=== PATIENT | male | born 1945 | race Caucasian/White ===

== ENCOUNTER 2016-12-23 14:14 | Inpatient (IN) | payer OTHER, MEDICARE ==
[2016-12-23] VITALS (11 sets, daily range): BP systolic 107–132; BP diastolic 71–87; PULSE 80–104; RESP 18–24; TEMP 97.9–98.6; O2SAT 89–98
[~2016-12-23] VITALS: Ht 185.4 cm; Wt 96.4 kg
[~2016-12-23 14:14] MED LIST: ADVA250A INH; ALBU17I INH; ALBU6.7H INH; ATOR10 PO; LISI-360 PO; PANT20 PO; PRED20 PO; SLO-500T2 PO; SPIRCAP INH; ZITH250T PO
[2016-12-23] MEDS ORDERED: VENTAER INH (14:42)
[2016-12-23] MEDS ORDERED: ATOR20TA15 PO (14:42)
[2016-12-23] MEDS ORDERED: SLO-500T PO (14:42)
[2016-12-23] MEDS ORDERED: ADVA500A INH (14:42)
[2016-12-23] MEDS ORDERED: SPIRCAP INH (14:42)
[2016-12-23] MEDS ORDERED: PANT40TA3 PO (14:42)
[2016-12-23] MEDS ORDERED: [UNRECOGNIZED DRUG - OTHER] PO (14:42)
[2016-12-23] MEDS ORDERED: BYST5TAB2 PO (14:42)
[2016-12-23] MEDS ORDERED: SODIUM CHLORIDE 0.9% FLUSH 5 ML FLUSH IVF PRN (16:00)
[2016-12-23] MEDS ORDERED: methylPREDNISolone SOD SUCC 125 MG/2 ML VIAL IVP ONE (16:00)
[2016-12-23] MEDS: RESP: ALBUTEROL 2.5 MG/IPRATROPIUM 0.5 MG NEB (SCH) INH ×2 (16:07→16:20)
[2016-12-23 16:26] LABS: HEMATOCRIT 47.1 % (39.0-51.0); MEAN CELL VOLUME 90.6 FL (80.0-100.0); MEAN CORPUSCULAR HEMOGLOBIN 29.5 PG (27.0-34.0); MEAN CORPUSCULAR HGB CONC 32.5 % (32.0-36.0); PLATELET COUNT 248 TH/MM3 (150-450); RED CELL DISTRIBUTION WIDTH 13.9 % (11.6-17.2); WHITE BLOOD COUNT 4.4 TH/MM3 (4.0-11.0)
[2016-12-23 16:26] LABS: BLOOD GAS BASE EXCESS 4.2 mmol/L (-2-2); BLOOD GAS CARBOXYHEMOGLOBIN 1.8 % (0-4); BLOOD GAS HCO3 29 mmol/L (22-26); BLOOD GAS METHEMOGLOBIN 1.2 % (0-2); BLOOD GAS O2 HGB SATURATION 94 % (90-100); BLOOD GAS OXYGEN CONTENT 19.6 Vol % (12.0-20.0); BLOOD GAS PCO2 45 mmHG (38-42); BLOOD GAS PO2 84 mmHG (61-120); BLOOD GAS TOTAL HGB 14.9 G/DL (12.0-16.0); CRITICAL VALUE NO; TEMP CORR TO 98.6
[2016-12-23 16:27] LABS: DRAW SITE LT RADIAL; LITER FLOW 2 L/M; NUMBER OF ARTERIAL PUNCTURES 1; OXYGEN DEVICE NASAL CANNULA; STAT YES; ULNAR PULSE PRESENT
[2016-12-23 16:29] LABS: HEMO FLAGS AUTO DIFF
--- NOTE | 2016-12-23 16:30 | RADHPO ---
EXAM DATE/TIME: 12/23/2016 16:05 [facility] COMPARISON: No previous studies available for comparison. INDICATIONS: Short of breath with weakness. MEDICAL HISTORY: None. SURGICAL HISTORY: None. ENCOUNTER: Initial ACUITY: 4 - 6 days PAIN SCORE: 2/10 LOCATION: Bilateral chest FINDINGS: The heart and mediastinal structures are normal. Minimal increased interstitial markings are noted c onsistent with possible minimal congestion. Clinical correlation is recommended. No focal alveolar consolidation is noted. CONCLUSION: 1. Minimal increased interstitial markings consistent with possible minimal congestion versus viral pneumonitis. Clinical correlation is recommended. Enrike Pratt MD on December 23, 2016 at 16:23 Board Certified Radiologist. This report was verified electronically.
--- NOTE | 2016-12-23 16:33 | PD ---
HPI Chief Complaint: Respiratory Symptoms Time Seen by Provider: 15:38 Travel History International Travel<30 days: No Contact w/Intl Traveler<30days: No Traveled to known affect area: No History of Present Illness HPI Patient is a 71-year-old male with history of COPD (not oxygen dependent) who presents to emergency room with complaints of not feeling well for the past 3 days. Patient reports that the past 3 days, he has been having increased shortness of breath and chest pain and congestion. Patient reports that he has been coughing, reports that his cough has been productive and thick. Reports that he has been coughing so much, he has had increased pain to his chest. Patient reports that having intermittent chest pain, reports that he feels a tightness and pressure to his chest. Patient currently with no chest pain at this time. Patient denies any sick contacts. Patient reports that his only travels were to [place]. Patient reports that his influenza vaccine as well as pneumonia vaccine is up-to-date. Patient with no fevers or chills at this time. PFSH Past Medical History Hx Anticoagulant Therapy: Yes (BABY ASA) High Cholesterol: Yes COPD: Yes Diminished Hearing: No Respiratory: Yes (COPD) Tetanus Vaccination: Unknown Social History Alcohol Use: Yes (occasional) Tobacco Use: No Substance Use: No Allergies-Medications (Allergen,Severity, Reaction): Coded Allergies: No Known Allergies (Verified , 12/23/16) Reported Meds & Prescriptions Reported Meds & Active Scripts Active Reported Bystolic (Nebivolol) 5 Mg Tab 5 Mg PO DAILY Ventolin Hfa 18 GM Inh (Albuterol Sulfate) 90 Mcg/Act Aer 1 Puff INH Q4H PRN Spiriva Handihaler (Tiotropium Inh) 18 Mcg Cap 18 Mcg INH DAILY 1 capsule = 18 mcg Advair Diskus Inh (Fluticasone-Salmeterol Inh) 500-50 Mcg/Blist Aer 1 Puff INH BID Rinse mouth after use. Atorvastatin (Atorvastatin Calcium) 20 Mg Tab 20 Mg PO HS [Tenofibrate] 160 Mg PO DAILY Pantoprazole (Pantoprazole Sodium) 40 Mg Tab 40 Mg PO DAILY Slo-Niacin (Niacin) 500 Mg Tab 500 Mg PO DAILY Review of Systems General / Constitutional: No: Fever Eyes: No: Visual changes HENT: No: Headaches Cardiovascular: Positive: Chest Pain or Discomfort, Diaphoresis Respiratory: Positive: Cough, Shortness of Breath, Wheezing Gastrointestinal: No: Nausea, Vomiting, Abdominal Pain Genitourinary: No: Dysuria Musculoskeletal: Positive: Weakness, No: Pain Skin: No Rash Neurologic: No: Weakness Psychiatric: No: Depression Endocrine: No: Polydipsia Hematologic/Lymphatic: No: Easy Bruising Physical Exam Narrative GENERAL: moderate respiratory distress SKIN: Warm and dry. HEAD: Atraumatic. Normocephalic. EYES: Pupils equal and round. No scleral icterus. No injection or drainage. ENT: No nasal bleeding or discharge. Mucous membranes pink and moist. NECK: Trachea midline. No JVD. CARDIOVASCULAR: Regular rate and rhythm. No murmur appreciated. RESPIRATORY: Patient with scattered wheezing on evaluation.. GASTROINTESTINAL: Abdomen soft, non-tender, nondistended. Hepatic and splenic margins not palpable. MUSCULOSKELETAL: No obvious deformities. No clubbing. No cyanosis. No edema. NEUROLOGICAL: Awake and alert. No obvious cranial nerve deficits. Motor grossly within normal limits. Normal speech. PSYCHIATRIC: Appropriate mood and affect; insight and judgment normal. Data Data Last Documented VS Vital Signs Date Time Temp Pulse Resp B/P Pulse Ox O2 Delivery O2 Flow Rate FiO2 12/23/16 19:07 104 20 132/83 91 Nasal Cannula 2 12/23/16 14:19 97.9 Orders Complete Blood Count With Diff (12/23/16 15:52) Comprehensive Metabolic Panel (12/23/16 15:52) B-Type Natriuretic Peptide (12/23/16 15:52) Act Partial Throm Time (Ptt) (12/23/16 15:52) Prothrombin Time / Inr (Pt) (12/23/16 15:52) Magnesium (Mg) (12/23/16 15:52) Ckmb (Isoenzyme) Profile (12/23/16 15:52) Troponin I (12/23/16 15:52) Arterial Blood Gas (Abg) (12/23/16 15:52) Urinalysis - C+S If Indicated (12/23/16 15:52) Influenzae A/B Antigen (12/23/16 15:52) Blood Culture (12/23/16 15:52) Iv Access Insert/Monitor (12/23/16 15:52) Electrocardiogram (12/23/16 15:52) Ecg Monitoring (12/23/16 15:52) Oximetry (12/23/16 15:52) Oxygen Administration (12/23/16 15:52) Chest, Single Ap (12/23/16 15:52) Sodium Chloride 0.9% Flush (Ns Flush) (12/23/16 16:00) Methylprednisolone So Succ Inj (Solumedr (12/23/16 16:00) Albuterol-Ipratropium Neb (Duoneb Neb) (12/23/16 16:00) Lactic Acid Sepsis Protocol (12/23/16 15:52) Ceftriaxone Inj (Rocephin Inj) (12/23/16 17:45) Azithromycin Inj (Zithromax Inj) (12/23/16 17:45) Ct Pulmonary Angiogram (12/23/16 17:34) Iohexol 350 Inj (Omnipaque 350 Inj) (12/23/16 18:20) Aspirin (Aspirin) (12/23/16 19:00) Admit Order (Ed Use Only) (12/23/16 19:17) Labs Laboratory Tests Test 12/23/16 12/23/16 12/23/16 15:45 16:00 16:15 White Blood Count 4.4 TH/MM3 Red Blood Count 5.20 MIL/MM3 Hemoglobin 15.3 GM/DL Hematocrit 47.1 % Mean Corpuscular Volume 90.6 FL Mean Corpuscular Hemoglobin 29.5 PG Mean Corpuscular Hemoglobin 32.5 % Concent Red Cell Distribution Width 13.9 % Platelet Count 248 TH/MM3 Mean Platelet Volume 8.1 FL Neutrophils (%) (Auto) % Lymphocytes (%) (Auto) % Monocytes (%) (Auto) % Eosinophils (%) (Auto) % Basophils (%) (Auto) % Neutrophils # (Auto) TH/MM3 Lymphocytes # (Auto) TH/MM3 Monocytes # (Auto) TH/MM3 Eosinophils # (Auto) TH/MM3 Basophils # (Auto) TH/MM3 CBC Comment AUTO DIFF Differential Total Cells 100 Counted Neutrophils % (Manual) 37 % Lymphocytes % 44 % Monocytes % 18 % Eosinophils % 1 % Neutrophils # (Manual) 1.6 TH/MM3 Differential Comment FINAL DIFF MANUAL Platelet Estimate NORMAL Platelet Morphology Comment NORMAL Red Cell Morphology Comment NORMAL Prothrombin Time 10.9 SEC Prothromb Time International 1.0 RATIO Ratio Activated Partial 29.2 SEC Thromboplast Time Sodium Level 143 MEQ/L Potassium Level 3.8 MEQ/L Chloride Level 106 MEQ/L Carbon Dioxide Level 29.4 MEQ/L Anion Gap 8 MEQ/L Blood Urea Nitrogen 11 MG/DL Creatinine 0.95 MG/DL Estimat Glomerular Filtration 78 ML/MIN Rate Random Glucose 117 MG/DL Calcium Level 8.9 MG/DL Magnesium Level 1.8 MG/DL Total Bilirubin 0.4 MG/DL Aspartate Amino Transf 23 U/L (AST/SGOT) Alanine Aminotransferase 19 U/L (ALT/SGPT) Alkaline Phosphatase 57 U/L Total Creatine Kinase 89 U/L Troponin I LESS THAN 0.02 NG/ML Total Protein 7.2 GM/DL Albumin 3.5 GM/DL Lactic Acid Level 1.7 mmol/L B-Type Natriuretic Peptide 21 PG/ML Blood Gas Puncture Site LT RADIAL Blood Gas Patient Temperature 98.6 Blood Gas HCO3 29 mmol/L Blood Gas Base Excess 4.2 mmol/L Blood Gas Oxygen Saturation 94 % Arterial Blood pH 7.42 Arterial Blood Partial 45 mmHG Pressure CO2 Arterial Blood Partial 84 mmHG Pressure O2 Arterial Blood Oxygen Content 19.6 Vol % Arterial Blood 1.8 % Carboxyhemoglobin Arterial Blood Methemoglobin 1.2 % Blood Gas Hemoglobin 14.9 G/DL Oxygen Delivery Device NASAL CANNULA Blood Gas Liter Flow 2 L/M MDM Medical Decision Making Medical Screen Exam Complete: Yes Emergency Medical Condition: Yes Interpretation(s) EKG at 1648: sinus tach at 104bpm, nonspecific t wave changes Vital Signs Date Time Temp Pulse Resp B/P Pulse Ox O2 Delivery O2 Flow Rate FiO2 12/23/16 16:18 18 94 Nasal Cannula 2 12/23/16 14:43 94 Nasal Cannula 2 12/23/16 14:43 80 18 107/72 94 Nasal Cannula 2 12/23/16 14:28 18 90 Room Air 12/23/16 14:19 97.9 90 24 115/75 89 Differential Diagnosis acs, arrhythmia, copd exacerbation, PE, pneumonia, influenza Narrative Course Patient is a 71-year-old male who presents to emergency room with complaints of COPD exacerbation. Patient reports that for the past 3 days, he has had increased cough, congestion, thick white sputum production as well as chest pain. Reports no fevers or chills with this time. Reports that he has been wheezing. Upon arrival to the emergency room, patient was placed on registered nurse step down. Patient was hypoxic with a pulse ox of 89% on room air. Patient is not oxygen dependent, and does not use home O2. Patient was placed on 2 L nasal cannula and pulse ox 94 %. IV Solu-Medrol as well as neb treatments ordered for patient. Labs and x-ray of the chest ordered. Plan to monitor the patient and reevaluate after treatment. Patient reevaluated, patient hypoxic and is 90% on 2L NC. Patient reports that he recently drove to [place] and back, also PE. CT angio ordered for evaluation of possible PE Vital Signs Date Time Temp Pulse Resp B/P Pulse Ox O2 Delivery O2 Flow Rate FiO2 12/23/16 16:48 102 18 107/74 91 Nasal Cannula 2 12/23/16 16:39 92 Nasal Cannula 2.00 12/23/16 16:18 18 94 Nasal Cannula 2 12/23/16 14:43 94 Nasal Cannula 2 12/23/16 14:43 80 18 107/72 94 Nasal Cannula 2 12/23/16 14:28 18 90 Room Air 12/23/16 14:19 97.9 90 24 115/75 89 CBC & BMP Diagram 12/23/16 15:[address] Angiography 12/23/16 1734 Signed Impressions: Service Date/Time: December 18:04 - CONCLUSION: 1. Negative for pulmonary embolism. 2. Approximately 7 mm irregular parenchymal opacity right upper lobe. Followup noncontrast chest CT recommended in 3 months. 3. Severe coronary calcifications. Jarad Alvarez MD All labs and all studies reviewed with patient in detail. A copy patient CT report was given to him. Patient will her observation for COPD exacerbation with hypoxia as he is 89% on room air. Patient will also need to be observed for chest pain lung mass reviewed with pt - pt reports that he has known about this and has had it biopsied and reports "its just scarring." pt also with severe coronary calcifications with complaints of chest pain, patient denies history of hypertension or hyperlipidemia, patient will observation for chest pain as well. Patient give patient a dose of aspirin. Physician Communication Physician Communication case reviewed with dr feliciano who accepts pt to service Diagnosis Primary Impression: copd exacerbation with hypoxia Additional Impressions: Chest pain Qualified Code: R07.9 - Chest pain, unspecified type Lung mass Admitting Information Admitting Physician Requests: Observation Asha Deng DO Dec 23, 2016 16:33
[2016-12-23 16:48] LABS: CHLORIDE 106 MEQ/L (98-107); POTASSIUM 3.8 MEQ/L (3.5-5.1); SODIUM (NA) 143 MEQ/L (136-145)
[2016-12-23 16:51] LABS: ANION GAP 8 MEQ/L (5-15); BICARBONATE 29.4 MEQ/L (21.0-32.0); MAGNESIUM 1.8 MG/DL (1.5-2.5)
[2016-12-23 16:52] LABS: BLOOD UREA NITROGEN 11 MG/DL (7-18)
[2016-12-23 16:54] LABS: ALT (GPT) 19 U/L (12-78); AST (GOT) 23 U/L (15-37)
[2016-12-23 16:55] LABS: GLOMERULAR FILTRATION RATE 78 ML/MIN (>89)
[2016-12-23 16:56] LABS: TOTAL BILIRUBIN ADULT 0.4 MG/DL (0.2-1.0)
[2016-12-23 16:57] LABS: ALKALINE PHOSPHATASE 57 U/L (45-117)
[2016-12-23 16:58] LABS: CREATINE KINASE 89 U/L (39-308)
[2016-12-23 17:02] LABS: APTT (PATIENT) 29.2 SEC (24.3-30.1); PROTHROMBIN TIME - PATIENT 10.9 SEC (9.8-11.6)
[2016-12-23 17:14] LABS: EOSINOPHILS 1 % (0-4); NEUTROPHIL # MANUAL DIFF 1.6 TH/MM3 (1.8-7.7); POLYS (SEG NEUTROPHILS) 37 % (16-70); WBC DIFF SAMPLE 100
[2016-12-23 17:16] LABS: PLATELET ESTIMATE SMEAR NORMAL (NORMAL); PLATELET MORPHOLOGY NORMAL (NORMAL); SCAN/DIFF FINAL DIFF MANUAL
[2016-12-23] MEDS ORDERED: cefTRIAXone INJ 1,000 MG in SODIUM CHLORIDE 0.9% INJ 100 ML IV ONE (17:45)
[2016-12-23] MEDS ORDERED: AZITHROMYCIN INJ 500 MG in SODIUM CHLOR 0.9% 250 ML INJ 250 ML IV ONE (17:45)
[2016-12-23] MEDS ORDERED: IOHEXOL 350 MG/ML 10 ML VIAL (for RAD DIAG) IV ONE (18:20)
--- NOTE | 2016-12-23 18:35 | RADHPO ---
EXAM DATE/TIME: 12/23/2016 18:04 [facility] COMPARISON: No previous studies available for comparison. INDICATIONS : Shortness of breath, weakness and congestion for three days. IV CONTRAST: 75 cc Omnipaque 350 (iohexol) IV RADIATION DOSE: 19.26 CTDIvol (mGy) MEDICAL HISTORY : Chronic obstructive pulmonary disease. SURGICAL HISTORY : None. ENCOUNTER: Initial ACUITY: 3 days PAIN SCALE: 0/10 LOCATION: chest TECHNIQUE: Volumetric scanning of the chest was performed using a pulmonary embolism protocol MIP images were re constructed. Using automated exposure control and adjustment of the mA and/or kV according to patien t size, radiation dose was kept as low as reasonably achievable to obtain optimal diagnostic quality images. FINDINGS: No filling defects in the pulmonary arteries to suggest or embolic disease. There is an approximately 7 mm irregular parenchymal density in the right upper lobe. The differential diagnosis includes scar ring but cannot exclude neoplasm. Recommend close followup and next 3 months. There is also parenchym al scarring left lung apex. Mild to moderate emphysema. No pleural or pericardial effusion. Severe co ronary calcifications. No adenopathy. No acute findings in the upper abdomen. CONCLUSION: 1. Negative for pulmonary embolism. 2. Approximately 7 mm irregular parenchymal opacity right upper lobe. Followup noncontrast chest CT r ecommended in 3 months. 3. Severe coronary calcifications. Jarad Alvarez MD on December 23, 2016 at 18:29 Board Certified Radiologist. This report was verified electronically.
[2016-12-23] MEDS ORDERED: ASPIRIN 325 MG TAB PO ONE (19:00)
[2016-12-23 19:37] LABS: BLOOD, URINE LARGE (NEG); GLUCOSE,URINE NEG (NEG); KETONE, URINE NEG (NEG); NITRITE,URINE NEG (NEG); PH, URINE 8.5 (5.0-8.5)
[2016-12-23 19:51] LABS: URINE COLOR YELLOW (YELLW/STRAW)
[2016-12-23 19:52] LABS: COMMENT (UR) CULT NOT INDICATED; CULTURE IF INDICATED CULT NOT INDICATED; RBC, URINE 15-19 /hpf (0-3); SQUAMOUS EPITHELIAL CELL URINE 0-5 /hpf (0-5)
[2016-12-23] MEDS ORDERED: RESP: ALBUTEROL 2.5 MG/IPRATROPIUM 0.5 MG NEB (PRN) NEB (20:15)
[2016-12-23] MEDS ORDERED: SODIUM CHLORIDE 0.9% FLUSH 5 ML FLUSH FLUSH PRN (20:15)
[2016-12-23] MEDS ORDERED: BISACODYL 10 MG SUPP PR PRN (20:15)
[2016-12-23] MEDS ORDERED: ACETAMINOPHEN/HYDROcodone 325 MG/5 MG TAB PO PRN (20:15)
[2016-12-23] MEDS ORDERED: ACETAMINOPHEN 325 MG TAB PO PRN (20:15)
[2016-12-23] MEDS ORDERED: ONDANSETRON HCL 4 MG/2 ML VIAL IVP PRN (20:15)
[2016-12-23] MEDS ORDERED: ACETAMINOPHEN/HYDROcodone 325 MG/10 MG TAB PO PRN (20:15)
[2016-12-23] MEDS: guaiFENesin E.R. 600 MG TAB PO SCH (21:07)
[2016-12-23] MEDS: SODIUM CHLORIDE 0.9% FLUSH 5 ML FLUSH FLUSH SCH (21:07)
[2016-12-23] MEDS: BUDESONIDE-FORMOTEROL 160/4.5 MCG INHALER INH SCH (21:07)
[2016-12-23] MEDS: ATORVASTATIN 20 MG TAB PO SCH (21:07)
[2016-12-24] VITALS (16 sets, daily range): BP systolic 113–159; BP diastolic 70–94; PULSE 68–105; RESP 15–26; TEMP 97–97.9; O2SAT 93–97
[2016-12-24 04:37] LABS: AUTOMATED NEUTROPHIL # 2.2 TH/MM3 (1.8-7.7); BASOPHIL % 0.3 % (0.0-2.0); HEMATOCRIT 43.8 % (39.0-51.0); HEMO FLAGS DIFF FINAL; LYMPH % 21.8 % (9.0-44.0); LYMPHOCYTE # 0.6 TH/MM3 (1.0-4.8); MEAN CELL VOLUME 89.5 FL (80.0-100.0); MEAN CORPUSCULAR HEMOGLOBIN 29.6 PG (27.0-34.0); MEAN CORPUSCULAR HGB CONC 33.1 % (32.0-36.0); MONO % 4.3 % (0.0-8.0); NEUT % 73.6 % (16.0-70.0); PLATELET COUNT 237 TH/MM3 (150-450); RED CELL DISTRIBUTION WIDTH 13.1 % (11.6-17.2); WHITE BLOOD COUNT 2.9 TH/MM3 (4.0-11.0)
[2016-12-24 04:47] LABS: CHLORIDE 106 MEQ/L (98-107); POTASSIUM 3.9 MEQ/L (3.5-5.1); SODIUM (NA) 143 MEQ/L (136-145)
[2016-12-24 04:51] LABS: ANION GAP 8 MEQ/L (5-15); BICARBONATE 29.2 MEQ/L (21.0-32.0); BLOOD UREA NITROGEN 12 MG/DL (7-18)
[2016-12-24 04:54] LABS: ALT (GPT) 16 U/L (12-78); AST (GOT) 15 U/L (15-37); GLOMERULAR FILTRATION RATE 83 ML/MIN (>89)
[2016-12-24 04:55] LABS: TOTAL BILIRUBIN ADULT 0.3 MG/DL (0.2-1.0)
[2016-12-24 04:57] LABS: ALKALINE PHOSPHATASE 52 U/L (45-117)
[2016-12-24] MEDS: methylPREDNISolone SOD SUCC 40 MG/1 ML VIAL IV PUSH SCH ×5 (06:07→23:51)
[2016-12-24] MEDS: RESP: ALBUTEROL 2.5 MG/IPRATROPIUM 0.5 MG NEB (SCH) NEB ×4 (07:27→19:14)
[2016-12-24] MEDS: guaiFENesin E.R. 600 MG TAB PO SCH ×2 (08:10→20:50)
[2016-12-24] MEDS: PANTOPRAZOLE SOD 40 MG DELAYED RELEASE TAB PO SCH (08:10)
[2016-12-24] MEDS: BUDESONIDE-FORMOTEROL 160/4.5 MCG INHALER INH SCH ×2 (08:11→20:51)
--- NOTE | 2016-12-24 12:00 | HHI.HP ---
[facility] Service [place] [facility] Primary Care Physician Non-Staff Admission Diagnosis COPD with hypoxia, Chest pain Diagnoses: Chief Complaint: Short of breath Travel History International Travel<30 Days: No Contact w/Intl Traveler <30 Da: No Traveled to Known Affected Are: No History of Present Illness Patient is a 71-year-old gentleman with a known history of COPD for at least 15 years. He had become increasingly short of breath with dyspnea on exertion and for the last 3 days had a productive cough. He notes his [id number] and had similar symptoms. Patient says he has a pulse oximeter at home and noted that his oxygen levels were running very low so he came to the emergency room. On arrival he was 89% on room air and with oxygen supplementation he improved dramatically. Patient notes no chest pain although he says with his coughing he does get some chest discomfort. Patient has not had any fevers or chills. He is seen today and reports feeling better overnight. He is still hypoxemic on room air however. Patient is admitted for further evaluation and treatment of COPD exacerbation with hypoxemic and hypercapnic respiratory failure. Review of Systems Constitutional: DENIES: Diaphoretic episodes, Fatigue, Fever, Weight gain, Weight loss, Chills, Dizziness, Change in appetite, Night Sweats Endocrine: DENIES: Heat/cold intolerance, Polydipsia, Polyuria, Polyphagia Eyes: DENIES: Blurred vision, Diplopia, Eye inflammation, Eye pain, Vision loss , Photosensitivity, Double Vision Ears, nose, mouth, throat: DENIES: Tinnitus, Hearing loss, Vertigo, Nasal discharge, Oral lesions, Throat pain, Hoarseness, Ear Pain, Running Nose, Epistaxis, Sinus Pain, Toothache, Odynophagia Respiratory: COMPLAINS OF: Cough, Sputum production, Shortness of breath, DENIES: Apneas, Snoring, Wheezing, Hemoptysis Cardiovascular: COMPLAINS OF: Dyspnea on Exertion, DENIES: Chest pain, Palpitations, Syncope, PND, Lower Extremity Edema, Orthopnea, Claudication Gastrointestinal: DENIES: Abdominal pain, Black stools, Bloody stools, Constipation, Diarrhea, Nausea, Vomiting, Difficulty Swallowing, Anorexia Genitourinary: DENIES: Sexual dysfunction, Urinary frequency, Urinary incontinence, Urgency, Hematuria, Dysuria, Nocturia, Penile Discharge, Testicular Pain, Testicular Swelling Musculoskeletal: DENIES: Joint pain, Muscle aches, Stiffness, Joint Swelling, Back pain, Neck pain Integumentary: DENIES: Abnormal pigmentation, Nail changes, Pruritus, Rash Hematologic/lymphatic: DENIES: Bruising, Lymphadenopathy Immunologic/allergic: DENIES: Eczema, Urticaria Psychiatric: DENIES: Anxiety, Confusion, Mood changes, Depression, Hallucinations, Agitation, Suicidal Ideation, Homicidal Ideation, Delusions Past Family Social History Past Medical History COPD Hyperlipidemia GERD Past Surgical History Carpal tunnel surgery Knee repair Reported Medications Reviewed in the medical record Allergies: Coded Allergies: No Known Allergies (Verified , 12/23/16) Active Ordered Medications Reviewed in the medical record Family History Mother from severe COPD at 65, father from acute heart attack at 62 Brother is on oxygen and has COPD Social History Patient quit smoking over 30 years ago, no alcohol dependency although he uses alcohol weekly, , visiting from [place] Multiple sick contacts including his and [id number] Physical Exam Vital Signs Vital Signs Date Time Temp Pulse Resp B/P Pulse Ox O2 Delivery O2 Flow Rate FiO2 12/24/16 07:31 83 12/24/16 07:27 93 Nasal Cannula 2.00 12/24/16 07:00 97.6 80 15 144/91 93 12/24/16 06:00 84 12/24/16 05:00 83 12/24/16 04:00 90 12/24/16 04:00 97.7 91 26 120/87 94 12/24/16 03:00 90 12/24/16 02:00 91 12/24/16 01:00 91 12/24/16 00:00 97.9 91 20 113/70 94 12/24/16 00:00 91 12/23/16 23:00 85 12/23/16 23:00 90 12/23/16 22:00 98.6 97 22 124/87 98 12/23/16 21:25 103 20 131/71 93 12/23/16 20:55 93 Nasal Cannula 2.00 12/23/16 20:21 96 20 132/83 93 Nasal Cannula 2 12/23/16 19:07 104 20 132/83 91 Nasal Cannula 2 12/23/16 19:07 104 20 91 Nasal Cannula 2 12/23/16 16:48 102 18 107/74 91 Nasal Cannula 2 12/23/16 16:39 92 Nasal Cannula 2.00 12/23/16 16:18 18 94 Nasal Cannula 2 12/23/16 14:43 94 Nasal Cannula 2 12/23/16 14:43 80 18 107/72 94 Nasal Cannula 2 12/23/16 14:28 18 90 Room Air 12/23/16 14:19 97.9 90 24 115/75 89 Physical Exam GENERAL: This is a well-nourished, well-developed patient, in no apparent distress. SKIN: No rashes, ecchymoses or lesions. Cool and dry. HEAD: Atraumatic. Normocephalic. No temporal or scalp tenderness. EYES: Pupils equal round and reactive. Extraocular motions intact. No scleral icterus. No injection or drainage. ENT: Nose without bleeding, purulent drainage or septal hematoma. Throat without erythema, tonsillar hypertrophy or exudate. Uvula midline. Airway patent. NECK: Trachea midline. No JVD or lymphadenopathy. Supple, nontender, no meningeal signs. CARDIOVASCULAR: Regular rate and rhythm without murmurs, gallops, or rubs. RESPIRATORY: decreased air flowl bilaterally. No wheezes, rales, or rhonchi. GASTROINTESTINAL: Abdomen soft, non-tender, nondistended. No hepato-splenomegaly , or palpable masses. No guarding. MUSCULOSKELETAL: Extremities without clubbing, cyanosis, or edema. No joint tenderness, effusion, or edema noted. No calf tenderness. Negative Homans sign bilaterally. NEUROLOGICAL: Awake and alert. Cranial nerves II through XII intact. Motor and sensory grossly within normal limits. Five out of 5 muscle strength in all muscle groups. Normal speech. Laboratory Laboratory Tests Test 12/23/16 12/23/16 12/23/16 12/23/16 15:45 16:00 16:15 19:25 White Blood Count 4.4 Red Blood Count 5.20 Hemoglobin 15.3 Hematocrit 47.1 Mean Corpuscular Volume 90.6 Mean Corpuscular Hemoglobin 29.5 Mean Corpuscular Hemoglobin 32.5 Concent Red Cell Distribution Width 13.9 Platelet Count 248 Mean Platelet Volume 8.1 Neutrophils (%) (Auto) Lymphocytes (%) (Auto) Monocytes (%) (Auto) Eosinophils (%) (Auto) Basophils (%) (Auto) Neutrophils # (Auto) Lymphocytes # (Auto) Monocytes # (Auto) Eosinophils # (Auto) Basophils # (Auto) CBC Comment AUTO DIFF Differential Total Cells 100 Counted Neutrophils % (Manual) 37 Lymphocytes % 44 Monocytes % 18 Eosinophils % 1 Neutrophils # (Manual) 1.6 Differential Comment FINAL DIFF MANUAL Platelet Estimate NORMAL Platelet Morphology Comment NORMAL Red Cell Morphology Comment NORMAL Prothrombin Time 10.9 Prothromb Time International 1.0 Ratio Activated Partial 29.2 Thromboplast Time Sodium Level 143 Potassium Level 3.8 Chloride Level 106 Carbon Dioxide Level 29.4 Anion Gap 8 Blood Urea Nitrogen 11 Creatinine 0.95 Estimat Glomerular Filtration 78 Rate Random Glucose 117 Calcium Level 8.9 Magnesium Level 1.8 Total Bilirubin 0.4 Aspartate Amino Transf 23 (AST/SGOT) Alanine Aminotransferase 19 (ALT/SGPT) Alkaline Phosphatase 57 Total Creatine Kinase 89 Troponin I LESS THAN 0.02 Total Protein 7.2 Albumin 3.5 Lactic Acid Level 1.7 B-Type Natriuretic Peptide 21 Blood Gas Puncture Site LT RADIAL Blood Gas Patient Temperature 98.6 Blood Gas HCO3 29 Blood Gas Base Excess 4.2 Blood Gas Oxygen Saturation 94 Arterial Blood pH 7.42 Arterial Blood Partial 45 Pressure CO2 Arterial Blood Partial 84 Pressure O2 Arterial Blood Oxygen Content 19.6 Arterial Blood 1.8 Carboxyhemoglobin Arterial Blood Methemoglobin 1.2 Blood Gas Hemoglobin 14.9 Oxygen Delivery Device NASAL CANNULA Blood Gas Liter Flow 2 Urine Color YELLOW Urine Turbidity SLIGHT Urine pH 8.5 Urine Specific Equality GREATER THAN 1.035 Urine Protein TRACE Urine Glucose (UA) NEG Urine Ketones NEG Urine Occult Blood LARGE Urine Nitrite NEG Urine Bilirubin NEG Urine Leukocyte Esterase NEG Urine RBC 15-19 Urine Squamous Epithelial 0-5 Cells Microscopic Urinalysis Comment CULT NOT INDICATED Test 12/24/16 04:16 White Blood Count 2.9 Red Blood Count 4.90 Hemoglobin 14.5 Hematocrit 43.8 Mean Corpuscular Volume 89.5 Mean Corpuscular Hemoglobin 29.6 Mean Corpuscular Hemoglobin 33.1 Concent Red Cell Distribution Width 13.1 Platelet Count 237 Mean Platelet Volume 7.7 Neutrophils (%) (Auto) 73.6 Lymphocytes (%) (Auto) 21.8 Monocytes (%) (Auto) 4.3 Eosinophils (%) (Auto) 0.0 Basophils (%) (Auto) 0.3 Neutrophils # (Auto) 2.2 Lymphocytes # (Auto) 0.6 Monocytes # (Auto) 0.1 Eosinophils # (Auto) 0.0 Basophils # (Auto) 0.0 CBC Comment DIFF FINAL Differential Comment Sodium Level 143 Potassium Level 3.9 Chloride Level 106 Carbon Dioxide Level 29.2 Anion Gap 8 Blood Urea Nitrogen 12 Creatinine 0.90 Estimat Glomerular Filtration 83 Rate Random Glucose 151 Calcium Level 8.5 Total Bilirubin 0.3 Aspartate Amino Transf 15 (AST/SGOT) Alanine Aminotransferase 16 (ALT/SGPT) Alkaline Phosphatase 52 Total Protein 7.1 Albumin 3.3 Date/Time Procedure Status Source Growth 12/23/16 16:00 Influenza Types A,B Antigen ([facility]) - Final Complete Nasal Aspirate NEGATIVE FOR FLU A AND B ANTIGEN.... 12/23/16 16:00 Aerobic Blood Culture - Preliminary Resulted Blood Peripheral NO GROWTH IN 1 DAY 12/23/16 16:00 Anaerobic Blood Culture - Preliminary Resulted Blood Peripheral NO GROWTH IN 1 DAY Result Diagram: 12/24/16 0416 12/24/[address] Angiography 12/23/16 1734 Signed Impressions: Service Date/Time: December 18:04 - CONCLUSION: 1. Negative for pulmonary embolism. 2. Approximately 7 mm irregular parenchymal opacity right upper lobe. Followup noncontrast chest CT recommended in 3 months. 3. Severe coronary calcifications. Jarad Alvarez MD Chest X-Ray 12/23/16 1552 Signed Impressions: Service Date/Time: December 16:05 - CONCLUSION: 1. Minimal increased interstitial markings consistent with possible minimal congestion versus viral pneumonitis. Clinical correlation is recommended. Enrike Pratt MD Assessment and Plan Problem List: (1) Respiratory failure with hypoxia and hypercapnia ICD Code: J96.91 Status: Acute Plan: secondary to COPD exacerbation. Continue with current treatment for COPD as below (2) COPD exacerbation ICD Code: J44.1 Status: Acute Plan: Continue with bronchodilators, IV steroids, oxygen, IV rocephin/ azithromycin and pulmonary toilet Physician Certification 2 Midnight Certification Type: Admission for Inpatient Services Order for Inpatient Services The services are ordered in accordance with Medicare regulations or non- Medicare payer requirements, as applicable. In the case of services not specified as inpatient-only, they are appropriately provided as inpatient services in accordance with the 2-midnight benchmark. Estimated LOS (days): 3 3 days is the estimated time the patient will need to remain in the hospital, assuming treatment plan goals are met and no additional complications. Post-Hospital Plan: Carine Nicole MD Dec 24, 2016 12:00
[2016-12-24] MEDS: TIOTROPIUM BROMIDE 18 MCG INH INH SCH (12:44)
[2016-12-24] MEDS: SODIUM CHLORIDE 0.9% FLUSH 5 ML FLUSH FLUSH SCH ×2 (12:44→20:50)
[2016-12-24] MEDS: NEBIVOLOL 5 MG TAB PO SCH (12:44)
[2016-12-24] MEDS: cefTRIAXone INJ 1,000 MG in SODIUM CHLORIDE 0.9% INJ 100 ML IV SCH (16:58)
--- NOTE | 2016-12-24 19:40 | EKG ---
Date Performed: 12/23/2016 Time Performed: 16:48:46 PTAGE: 71 years EKG: Sinus tachycardia with PAC(s) Inferior T wave changes are nonspecific When compared to prev ious tracing, premature atrial contractions Are new and the ST-T changes are new. Borderline ECG PREVIOUS TRACING : 04/22/2014 12.34 DOCTOR: Tenzin Caputo Interpretating Date/Time 12/24/2016 19:38:34
[2016-12-24] MEDS: AZITHROMYCIN INJ 500 MG in SODIUM CHLOR 0.9% 250 ML INJ 250 ML IV SCH (20:49)
[2016-12-24] MEDS: ATORVASTATIN 20 MG TAB PO SCH (20:50)
[2016-12-25] VITALS (12 sets, daily range): BP systolic 129–147; BP diastolic 82–91; PULSE 67–97; RESP 18–20; TEMP 96.5–97.5; O2SAT 82–97
[2016-12-25] MEDS: methylPREDNISolone SOD SUCC 40 MG/1 ML VIAL IV PUSH SCH ×4 (05:30→23:53)
[2016-12-25] MEDS: RESP: ALBUTEROL 2.5 MG/IPRATROPIUM 0.5 MG NEB (SCH) NEB ×4 (07:45→20:09)
[2016-12-25] MEDS: SODIUM CHLORIDE 0.9% FLUSH 5 ML FLUSH FLUSH SCH ×2 (08:12→20:52)
[2016-12-25] MEDS: BUDESONIDE-FORMOTEROL 160/4.5 MCG INHALER INH SCH ×2 (08:13→20:54)
[2016-12-25] MEDS: TIOTROPIUM BROMIDE 18 MCG INH INH SCH (08:13)
[2016-12-25] MEDS: NEBIVOLOL 5 MG TAB PO SCH (08:15)
[2016-12-25] MEDS: PANTOPRAZOLE SOD 40 MG DELAYED RELEASE TAB PO SCH (08:15)
[2016-12-25] MEDS: guaiFENesin E.R. 600 MG TAB PO SCH ×2 (08:15→20:52)
[2016-12-25] MEDS ORDERED: OXYGENTANK NAS.CANULA (10:54)
--- NOTE | 2016-12-25 10:55 | HHI.DCPOC ---
Discharge Care Plan Diagnosis: (1) COPD exacerbation (2) Respiratory failure with hypoxia and hypercapnia Goals to Promote Your Health * To prevent worsening of your condition and complications * To maintain your health at the optimal level Directions to Meet Your Goals Take your medications as prescribed Follow your dietary instruction Follow activity as directed Keep your appointments as scheduled Take your immunizations and boosters as scheduled If your symptoms worsen call your PCP, if no PCP go to Urgent Care Center or Emergency Room Smoking is Dangerous to Your Health. Avoid second hand smoke Call the 24-hour hour crisis hotline for domestic abuse at Carine Gerardo MD Dec 25, 2016 10:55
--- NOTE | 2016-12-25 10:56 | HHI.DS ---
Discharge Summary Admission Date Dec 23, 2016 at 19:29 Discharge Date: Dec 25, 2016 Admitting Diagnosis COPD with hypoxia, Chest pain (1) Respiratory failure with hypoxia and hypercapnia ICD Code: J96.91 (2) COPD exacerbation ICD Code: J44.1 Procedures none Brief History - From Admission Patient is a 71-year-old gentleman with a known history of COPD for at least 15 years. He had become increasingly short of breath with dyspnea on exertion and for the last 3 days had a productive cough. He notes his [id number] and had similar symptoms. Patient says he has a pulse oximeter at home and noted that his oxygen levels were running very low so he came to the emergency room. On arrival he was 89% on room air and with oxygen supplementation he improved dramatically. Patient notes no chest pain although he says with his coughing he does get some chest discomfort. Patient has not had any fevers or chills. He is seen today and reports feeling better overnight. He is still hypoxemic on room air however. Patient is admitted for further evaluation and treatment of COPD exacerbation with hypoxemic and hypercapnic respiratory failure. CBC/BMP: 12/24/16 0416 12/24/16 0416 Significant Findings Laboratory Tests Test 12/23/16 12/23/16 12/23/16 12/24/16 15:45 16:15 19:25 04:16 Monocytes % 18 % (0-8) Neutrophils # (Manual) 1.6 TH/MM3 (1.8-7.7) Estimat Glomerular Filtration 78 ML/MIN (>89) 83 ML/MIN (>89) Rate Random Glucose 117 MG/DL 151 MG/DL (74-106) (74-106) Troponin I LESS THAN 0.02 NG/ML (0.02-0.05) Blood Gas HCO3 29 mmol/L (22-26) Blood Gas Base Excess 4.2 mmol/L (-2-2) Arterial Blood Partial 45 mmHG (38-42) Pressure CO2 Urine Specific [place] GREATER THAN 1.035 (1.002-1.035) Urine Occult Blood LARGE (NEG) Urine RBC 15-19 /hpf (0-3) White Blood Count 2.9 TH/MM3 (4.0-11.0) Neutrophils (%) (Auto) 73.6 % (16.0-70.0) Lymphocytes # (Auto) 0.6 TH/MM3 (1.0-4.8) Albumin 3.3 GM/DL (3.4-5.0) Imaging Last Impressions CT Angiography 12/23/16 1734 Signed Impressions: Service Date/Time: December 18:04 - CONCLUSION: 1. Negative for pulmonary embolism. 2. Approximately 7 mm irregular parenchymal opacity right upper lobe. Followup noncontrast chest CT recommended in 3 months. 3. Severe coronary calcifications. Jarad Alvarez MD Chest X-Ray 12/23/16 1552 Signed Impressions: Service Date/Time: , December 23, 2016 16:05 - CONCLUSION: 1. Minimal increased interstitial markings consistent with possible minimal congestion versus viral pneumonitis. Clinical correlation is recommended. Enrike Pratt MD PE at Discharge GENERAL: This is a well-nourished, well-developed patient, in no apparent distress. CARDIOVASCULAR: Regular rate and rhythm without murmurs, gallops, or rubs. RESPIRATORY: Clear to auscultation. Breath sounds equal bilaterally. No wheezes , rales, or rhonchi. GASTROINTESTINAL: Abdomen soft, non-tender, nondistended. Normal active bowel sounds MUSCULOSKELETAL: Extremities without clubbing, cyanosis, or edema. NEURO: Alert & Oriented x4 to person, place, time, situation. Moves all ext x4 Pt update on day of discharge Seen and evaluated in follow-up for COPD exacerbation and for the pneumonia. Hospital Course Patient is seen and treated for COPD exacerbation. Patient did well with bronchodilators and steroids. He remained hypoxemic and did qualify for oxygen. He was given steroids and antibiotics for pneumonia. His flu was negative Pt Condition on Discharge: Good Discharge Disposition: Discharge Home Discharge Time: > 30 minutes Discharge Instructions DIET: Follow Instructions for: Heart Healthy Diet Activities you can perform: Regular-No Restrictions Follow up Referrals: PCP Follow-up - 1 Week New Medications: Oxygen tank (Oxygen tank) 1 Ea Tank 2 LITER SATNAM.CANKinesio Capture CONTINUOUS Oxygen Concentrator Portable Gaseous 2 L/min via Nasal Cannula Continuous For 99 months HYPOXEMIA PREVENTION #1 CYLINDER Prednisone (Prednisone) 20 Mg Tab 20 MG PO BID Take 20 mg twice a day for 3 days then 20 mg daily for 3 days then 10 mg daily for 3 days then stop Inflammation #12 Ref 0 TAB Continued Medications: Albuterol 18 GM Inh (Ventolin Hfa 18 GM Inh) 90 Mcg/Act Aer 1 PUFF INH Q4H PRN SHORTNESS OF BREATH #1 Ref 0 INHALER Atorvastatin (Atorvastatin) 20 Mg Tab 20 MG PO HS Cholesterol Management #30 Ref 0 TAB Fluticasone-Salmeterol Inh (Advair Diskus Inh) 500-50 Mcg/Blist Aer 1 PUFF INH BID Rinse mouth after use. #1 Ref 0 INHALER Nebivolol (Bystolic) 5 Mg Tab 5 MG PO DAILY Blood Pressure Management #30 Ref 0 TAB Niacin ER (Slo-Niacin) 500 Mg Tab 500 MG PO DAILY Cholesterol Management #30 Ref 0 TAB Pantoprazole (Pantoprazole) 40 Mg Tab 40 MG PO DAILY Reflux #30 Ref 0 TAB Tiotropium Inh (Spiriva Handihaler) 18 Mcg Cap 18 MCG INH DAILY 1 capsule = 18 mcg COPD #30 Ref 0 CAP ([Tenofibrate]) 160 MG PO DAILY Carine Gerardo MD Dec 25, 2016 10:56
[2016-12-25] MEDS ORDERED: PRED20 PO (11:03)
[2016-12-25] MEDS ORDERED: LEVA750T PO (11:04)
--- NOTE | 2016-12-25 12:10 | HHI.PR ---
Addendum To [facility] Progress Not Reason for addendum: Additonal documentation (unable to d/c patient [place] to high O2 requirement with exertion on Walk test, will continue with Current treatment plan) Carine Gerardo MD Dec 25, 2016 12:10
[2016-12-25] MEDS: cefTRIAXone INJ 1,000 MG in SODIUM CHLORIDE 0.9% INJ 100 ML IV SCH (17:12)
[2016-12-25] MEDS: AZITHROMYCIN INJ 500 MG in SODIUM CHLOR 0.9% 250 ML INJ 250 ML IV SCH (20:52)
[2016-12-25] MEDS: ATORVASTATIN 20 MG TAB PO SCH (20:52)
[2016-12-26] VITALS (7 sets, daily range): BP systolic 111–146; BP diastolic 77–104; PULSE 71–90; RESP 16–20; TEMP 95.6–97.5; O2SAT 94–96
[2016-12-26] MEDS: methylPREDNISolone SOD SUCC 40 MG/1 ML VIAL IV PUSH SCH ×4 (05:48→23:54)
--- NOTE | 2016-12-26 07:05 | HHI.PR ---
Subjective Remarks Patient seen and evaluated in follow-up for COPD exacerbation and pneumonia. Still on 4 L O2. Acapella use discussed with patient this morning. Objective Vitals Vital Signs Date Time Temp Pulse Resp B/P Pulse Ox O2 Delivery O2 Flow Rate FiO2 12/26/16 05:06 12/26/16 00:44 96.6 77 16 127/77 95 12/25/16 20:52 96.5 97 18 147/87 94 12/25/16 20:10 95 Nasal Cannula 4.00 12/25/16 20:00 Nasal Cannula 2.00 12/25/16 16:16 95 Nasal Cannula 4.00 12/25/16 16:00 97.5 87 20 134/91 97 12/25/16 12:10 86 Nasal Cannula 4.00 12/25/16 12:05 95 Nasal Cannula 4.00 12/25/16 12:00 97.5 85 20 136/85 90 12/25/16 11:30 82 21 12/25/16 08:08 93 Nasal Cannula 2.00 12/25/16 08:00 97.5 91 19 131/85 89 12/25/16 07:47 94 Nasal Cannula 2.00 I/O 12/25/16 12/25/16 12/25/16 12/26/16 12/26/16 12/26/16 07:00 15:00 23:00 07:00 15:00 23:00 Intake Total 600 ml Balance 600 ml Intake Oral 600 ml # Voids 2 6 3 # Bowel Movements 1 Result Diagram: 12/24/16 0416 12/24/16 0416 Objective Remarks GENERAL: This is a well-nourished, well-developed patient, in no apparent distress. CARDIOVASCULAR: Regular rate and rhythm without murmurs, gallops, or rubs. RESPIRATORY: Clear to auscultation. Breath sounds equal bilaterally. No wheezes , rales, or rhonchi. GASTROINTESTINAL: Abdomen soft, non-tender, nondistended. Normal active bowel sounds MUSCULOSKELETAL: Extremities without clubbing, cyanosis, or edema. NEURO: Alert & Oriented x4 to person, place, time, situation. Moves all ext x4 Procedures none A/P Problem List: (1) Respiratory failure with hypoxia and hypercapnia ICD Code: J96.91 Status: Acute Plan: secondary to COPD exacerbation/pneumonia (CAP). Continue with current treatment for COPD and pneumonia as below (2) COPD exacerbation ICD Code: J44.1 Status: Acute Plan: Continue with bronchodilators, IV steroids, oxygen, IV steroids, spiriva and pulmonary toilet (3) CAP (community acquired pneumonia) ICD Code: J18.9 Status: Acute Plan: Rocephin/azithromycin 01/18 (4) HLD (hyperlipidemia) ICD Code: E78.5 Status: Chronic Plan: Cont home medications, stable (5) HTN (hypertension) ICD Code: I10 Status: Chronic Plan: Controlled on Bystolic Discharge Planning Discharge held due to high O2 requirement with exertion Patient appears comfortable however desaturates readily with exertion on 4 L Lungs need to be improved before patient can be discharged home Carine Gerardo MD Dec 26, 2016 07:05
[2016-12-26] MEDS: RESP: ALBUTEROL 2.5 MG/IPRATROPIUM 0.5 MG NEB (SCH) NEB ×4 (07:42→20:15)
[2016-12-26] MEDS ORDERED: ENALAPRILAT 1.25 MG/ML VIAL IV PUSH PRN (08:15)
[2016-12-26] MEDS: TIOTROPIUM BROMIDE 18 MCG INH INH SCH (08:54)
[2016-12-26] MEDS: BUDESONIDE-FORMOTEROL 160/4.5 MCG INHALER INH SCH ×2 (08:55→20:29)
[2016-12-26] MEDS: NEBIVOLOL 5 MG TAB PO SCH (08:56)
[2016-12-26] MEDS: SODIUM CHLORIDE 0.9% FLUSH 5 ML FLUSH FLUSH SCH ×2 (08:56→20:29)
[2016-12-26] MEDS: guaiFENesin E.R. 600 MG TAB PO SCH ×2 (08:56→20:29)
[2016-12-26] MEDS: PANTOPRAZOLE SOD 40 MG DELAYED RELEASE TAB PO SCH (08:56)
[2016-12-26] MEDS: cefTRIAXone INJ 1,000 MG in SODIUM CHLORIDE 0.9% INJ 100 ML IV SCH (17:40)
[2016-12-26] MEDS: AZITHROMYCIN INJ 500 MG in SODIUM CHLOR 0.9% 250 ML INJ 250 ML IV SCH (19:48)
[2016-12-26] MEDS: ATORVASTATIN 20 MG TAB PO SCH (20:29)
[2016-12-27] VITALS: BP 138/85; PULSE 76; RESP 18; TEMP 96; O2SAT 96
[2016-12-27] MEDS: methylPREDNISolone SOD SUCC 40 MG/1 ML VIAL IV PUSH SCH ×2 (06:05→12:38)
[2016-12-27] MEDS: RESP: ALBUTEROL 2.5 MG/IPRATROPIUM 0.5 MG NEB (SCH) NEB ×2 (07:44→11:41)
[2016-12-27 07:46] VITALS: O2SAT 93; O2SAT 97
[2016-12-27 08:30] VITALS: BP 143/94; PULSE 74; RESP 16; TEMP 96.1; O2SAT 97
[2016-12-27] MEDS: BUDESONIDE-FORMOTEROL 160/4.5 MCG INHALER INH SCH (09:00)
[2016-12-27] MEDS: TIOTROPIUM BROMIDE 18 MCG INH INH SCH (09:55)
[2016-12-27] MEDS: guaiFENesin E.R. 600 MG TAB PO SCH (09:56)
[2016-12-27] MEDS: PANTOPRAZOLE SOD 40 MG DELAYED RELEASE TAB PO SCH (09:56)
[2016-12-27] MEDS: NEBIVOLOL 5 MG TAB PO SCH (09:56)
[2016-12-27] MEDS: SODIUM CHLORIDE 0.9% FLUSH 5 ML FLUSH FLUSH SCH (09:57)
[2016-12-27] MEDS ORDERED: OXYGENTANK NAS.CANULA (11:42)
--- NOTE | 2016-12-27 11:45 | HHI.DS ---
Discharge Summary Admission Date Dec 23, 2016 at 19:29 Discharge Date: Dec 27, 2016 Admitting Diagnosis COPD with hypoxia, Chest pain (1) Respiratory failure with hypoxia and hypercapnia ICD Code: J96.91 (2) COPD exacerbation ICD Code: J44.1 (3) CAP (community acquired pneumonia) ICD Code: J18.9 (4) HLD (hyperlipidemia) ICD Code: E78.5 (5) HTN (hypertension) ICD Code: I10 Procedures none Brief History - From Admission Patient is a 71-year-old gentleman with a known history of COPD for at least 15 years. He had become increasingly short of breath with dyspnea on exertion and for the last 3 days had a productive cough. He noted his [id number] and had similar symptoms. Patient says he has a pulse oximeter at home and noted that his oxygen levels were running very low so he came to the emergency room. On arrival he was 89% on room air and with oxygen supplementation he improved dramatically. Patient notes no chest pain although he says with his coughing he does get some chest discomfort. Patient has not had any fevers or chills. He is seen today and reports feeling better overnight. He is still hypoxemic on room air however. Patient is admitted for further evaluation and treatment of COPD exacerbation with hypoxemic and hypercapnic respiratory failure. CBC/BMP: 12/24/16 0416 12/24/[address] Angiography 12/23/16 7214 Signed Impressions: Service Date/Time: December 18:04 - CONCLUSION: 1. Negative for pulmonary embolism. 2. Approximately 7 mm irregular parenchymal opacity right upper lobe. Followup noncontrast chest CT recommended in 3 months. 3. Severe coronary calcifications. Jarad Alvarez MD Chest X-Ray 12/23/16 1552 Signed Impressions: Service Date/Time: December 16:05 - CONCLUSION: 1. Minimal increased interstitial markings consistent with possible minimal congestion versus viral pneumonitis. Clinical correlation is recommended. Enrike Pratt MD PE at Discharge GENERAL: Well-nourished, well-developed patient. SKIN: Warm and dry. HEAD: Normocephalic. EYES: No scleral icterus. No injection or drainage. NECK: Supple, trachea midline. No JVD or lymphadenopathy. CARDIOVASCULAR: Regular rate and rhythm without murmurs, gallops, or rubs. RESPIRATORY: Breath sounds equal and clear to auscultation bilaterally. No accessory muscle use on 4 L nasal cannula. GASTROINTESTINAL: Abdomen soft, non-tender, nondistended. EXTREMITIES: No cyanosis, or edema. NEUROLOGICAL: Awake, alert, and oriented x 3. Non-focal. Hospital Course The patient was admitted to the hospital and treated for COPD exacerbation and pneumonia. He gradually improved. The patient does require home oxygen. He is ambulating about his room in no distress today. He and his are planning to drive home to [place] next week. Case management is assisting with arranging home oxygen. Pt Condition on Discharge: Good Discharge Disposition: Discharge Home Discharge Time: <= 30 minutes Discharge Instructions DIET: Follow Instructions for: Heart Healthy Diet Activities you can perform: Regular-No Restrictions New Medications: Levofloxacin (Levaquin) 750 Mg Tab 750 MG PO DAILY Infection #7 Ref 0 TAB Oxygen tank (Oxygen tank) 1 Ea Tank 2 LITER SATNAM.CANOctmami CONTINUOUS Oxygen Concentrator Portable Gaseous 2 L/min via Nasal Cannula Continuous For 99 months HYPOXEMIA PREVENTION #4 CYLINDER Prednisone (Prednisone) 20 Mg Tab 20 MG PO BID Take 20 mg twice a day for 3 days then 20 mg daily for 3 days then 10 mg daily for 3 days then stop Inflammation #12 Ref 0 TAB Continued Medications: Albuterol 18 GM Inh (Ventolin Hfa 18 GM Inh) 90 Mcg/Act Aer 1 PUFF INH Q4H PRN SHORTNESS OF BREATH #1 Ref 0 INHALER Atorvastatin (Atorvastatin) 20 Mg Tab 20 MG PO HS Cholesterol Management #30 Ref 0 TAB Fluticasone-Salmeterol Inh (Advair Diskus Inh) 500-50 Mcg/Blist Aer 1 PUFF INH BID Rinse mouth after use. #1 Ref 0 INHALER Nebivolol (Bystolic) 5 Mg Tab 5 MG PO DAILY Blood Pressure Management #30 Ref 0 TAB Niacin ER (Slo-Niacin) 500 Mg Tab 500 MG PO DAILY Cholesterol Management #30 Ref 0 TAB Pantoprazole (Pantoprazole) 40 Mg Tab 40 MG PO DAILY Reflux #30 Ref 0 TAB Tiotropium Inh (Spiriva Handihaler) 18 Mcg Cap 18 MCG INH DAILY 1 capsule = 18 mcg COPD #30 Ref 0 CAP ([Tenofibrate]) 160 MG PO DAILY Madhuri Washington MD Dec 27, 2016 11:44
== END 2016-12-27 15:20 | disposition home or self-care (01) | DRG 189 ==
LOC: PHED 14:14 → PHEDA 19:29 → PHICU 21:19 → PH3A 12-24 13:49
PROVIDERS: ADMIT Family Medicine; ATTEND Family Medicine
DX: J96.01 Acute respiratory failure with hypoxia (principal); J18.9 Pneumonia, unspecified organism; J44.0 Chronic obstructive pulmonary disease with (acute) lower respiratory infection; J44.1 Chronic obstructive pulmonary disease with (acute) exacerbation; J96.02 Acute respiratory failure with hypercapnia; E78.5 Hyperlipidemia, unspecified; K21.9 Gastro-esophageal reflux disease without esophagitis; I10 Essential (primary) hypertension; Z87.891 Personal history of nicotine dependence
CPT/HCPCS: 36600; 71010; 71275; 80053; 81001; 82550; 82805; 83605; 83735; 83880; 84484; 85007; 85025; 85027; 85610; 85730; 87040; 87804; 93005; 94620; 94640; 94664; 94667; 94668; 96365; 96367; 96375; J0456; J0696; J2920; J2930; J7050; Q9967